=== PATIENT | male | born 1990 | race Caucasian/White ===

== ENCOUNTER 2019-04-17 15:35 | Emergency (ER) | payer OTHER ==
[2019-04-17 15:45] VITALS: BP 147/107
[2019-04-17] MEDS ORDERED: oxyCODONE 5 MG TABLET PO STA (15:56)
[2019-04-17] MEDS ORDERED: predniSONE 20 MG TABLET PO STA (15:56)
--- NOTE | 2019-04-17 16:01 | ED Physician Documentation ---
PD HPI BACK PAIN - Stated complaint Stated Complaint: BACK PX - Chief complaint Chief Complaint: Back Pain - History obtained from History obtained from: Patient - History of Present Illness Timing - onset: Other (29-year-old gentleman with history of sciatica. For the last month he has had low back pain radiating into the left leg down to the small toe side. Has had this before a few years ago and it went away after about 8 weeks. It was getting better, but got worse again a couple weeks ago. He has tried naproxen and a muscle relaxer without help.) Review of Systems Ten Systems: 10 systems reviewed and negative Constitutional: denies: Fever, Chills GI: denies: Abdominal Pain, Nausea, Vomiting : denies: Dysuria, Frequency, Incontinent PD PAST MEDICAL HISTORY - Past Medical History Past Medical History: Yes Respiratory: Asthma - Past Surgical History Past Surgical History: No - Present Medications Home Medications: Ambulatory Orders Medication Instructions Recorded Confirmed Albuterol Sulfate [Albuterol PRN 07/13/15 07/13/15 Sulfate Hfa] Cephalexin [Keflex] 500 mg PO Q6HR 10 Days capsule 07/13/15 Fexofenadine HCl [Tammie Allergy] DAILY 07/13/15 07/13/15 Ranitidine HCl [Zantac 75] 1 tab BID 07/13/15 07/13/15 Oxycodone HCl/Acetaminophen 1 - 2 each PO Q6H PRN #20 tablet 04/17/19 [Percocet 5-325 mg Tablet] Physical Therapy 1 unit TD ONCE #1 04/17/19 predniSONE [Deltasone] 20 mg PO [id number] #21 tab 04/17/19 - Allergies Allergies/Adverse Reactions: Allergies Allergy/AdvReac Type Severity Reaction Status Date / Time No Known Drug Allergies Allergy Verified 07/13/15 10:58 - Social History Does the pt smoke?: No Smoking Status: Never smoker Does the pt drink ETOH?: No Does the pt have substance abuse?: No - Immunizations Immunizations are current?: Yes Immunizations: TDAP current <10years PD ED PE NORMAL - Vitals Vital signs reviewed: Yes - General General: Alert and oriented X 3, Other (Winces with motion) - Abdomen Abdomen: Soft, Non tender - Back Back: No spinal TTP, Other (He has a 1+ Left patellar reflex and a 2+ right patellar reflex. His Achilles reflexes and sensation throughout the legs are symmetric.) - Derm Derm: Normal color, Warm and dry - Extremities Extremities: No edema, No calf tenderness / cord Results - Vitals Vitals: Vital Signs - 24 hr 04/17/19 15:39 Temperature 36.6 C Heart Rate 99 Respiratory 18 Rate Blood Pressure 147/107 H O2 Saturation 100 Oxygen O2 Source Room air PD MEDICAL DECISION MAKING - ED course ED course: 29-year-old gentleman with low back pain, no "red flags". He has findings suggestive of a left L4-L5 radiculopathy. Departure - Departure Disposition: Home, Self Care Clinical Impression: Sciatica Qualifiers: Laterality: left Qualified Code(s): M54.32 - Sciatica, left side Condition: Good Record reviewed to determine appropriate education?: Yes Instructions: ED Sciatica Prescriptions: Oxycodone HCl/Acetaminophen [Percocet 5-325 mg Tablet] 1 - 2 each PO Q6H PRN #20 tablet PRN Reason: pain Physical Therapy 1 unit TD ONCE #1 predniSONE [Deltasone] 20 mg PO [id number] #21 tab Comments: Call your doctor to arrange a follow-up appointment, make the next available appointment. In the interim, return anytime if worse or if new symptoms develop . Do not drink or drive while taking narcotic pain medication. Note that many narcotic pain relievers also contain Tylenol/acetaminophen. Please ensure that your total dose of acetaminophen from all sources does not exceed 3 g (3000 mg) per day. You may get constipated while on this medication. Take a stool softener such as Colace twice a day while you are on it. Also add an [id number] laxative such as senna or MiraLAX on any day that you do not have a bowel movement. If you received a narcotic pain medication or sedative while in the emergency department, do not drive for the next 24 hours. Your blood pressure was elevated today on check into the emergency department. This does not mean that you have hypertension, it is a common phenomenon to come to the emergency department and have elevated blood pressure. I recommend that you see your primary care physician within the week to have it rechecked when you are feeling better.
== END 2019-04-17 16:12 | disposition home or self-care (01) ==
LOC: ED 15:35
DX: M54.32 Sciatica, left side (principal)
CPT/HCPCS: 99283; A9270; J7512

== ENCOUNTER 2019-04-21 15:51 | Emergency (ER) | payer OTHER ==
[2019-04-21 16:09] VITALS: BP 123/87
[2019-04-21] MEDS ORDERED: CHERRY SYRUP 10 ML UDC PO ONE (16:43)
[2019-04-21] MEDS ORDERED: DEXAMETHASONE 10 MG/ML VIAL PO STA (16:43)
[2019-04-21] MEDS ORDERED: KETOROLAC 60 MG/2 ML VIAL IM STA (16:44)
--- NOTE | 2019-04-21 16:46 | ED Physician Documentation ---
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 He does state that he had some improvement with the pain medication he has been having to lay on his abdomen as the only comfortable position he can get into. Review of Systems Constitutional: denies: Fever Nose: denies: Rhinorrhea / runny nose, Congestion Respiratory: denies: Cough GI: denies: Vomiting Musculoskeletal: reports: Back pain. denies: Neck pain, Extremity pain Neurologic: denies: Generalized weakness, Focal weakness, Numbness PD PAST MEDICAL HISTORY - Past Medical History Past Medical History: Yes Respiratory: Asthma - Past Surgical History Past Surgical History: No - Present Medications Home Medications: Ambulatory Orders Medication Instructions Recorded Confirmed Albuterol Sulfate [Albuterol PRN 07/13/15 07/13/15 Sulfate Hfa] Cephalexin [Keflex] 500 mg PO Q6HR 10 Days capsule 07/13/15 Fexofenadine HCl [Tammie Allergy] DAILY 07/13/15 07/13/15 Ranitidine HCl [Zantac 75] 1 tab BID 07/13/15 07/13/15 Oxycodone HCl/Acetaminophen 1 - 2 each PO Q6H PRN #20 tablet 04/17/19 [Percocet 5-325 mg Tablet] Physical Therapy 1 unit TD ONCE #1 04/17/19 predniSONE [Deltasone] 20 mg PO [id number] #21 tab 04/17/19 - Allergies Allergies/Adverse Reactions: Allergies Allergy/AdvReac Type Severity Reaction Status Date / Time No Known Drug Allergies Allergy Verified 04/21/19 16:09 - Social History Does the pt smoke?: No Smoking Status: Never smoker Does the pt drink ETOH?: No Does the pt have substance abuse?: No - Immunizations Immunizations are current?: Yes Immunizations: TDAP current <10years - POLST Patient has POLST: No PD ED PE NORMAL - Vitals Vital signs reviewed: Yes (tachy and hypertensive) - General General: Alert and oriented X 3, No acute distress, Well developed/nourished, Other (The patient is laying prone on the gurney and does not appaer in di stress) - HEENT HEENT: Atraumatic, PERRL, EOMI - Respiratory Respiratory: No respiratory distress - Back Back: No CVA TTP, No spinal TTP, Other (There is mild tenderness to the lower lumbar paraspinous muscles on the left lower extending into the sciatic notch .) - Derm Derm: Normal color, Warm and dry, No rash - Extremities Extremities: No deformity, No edema, Other (good dorsiflexion bilaterally. sub jective numbness to the web space of toes 1 & 2 on left foot. ) - Neuro Neuro: Alert and oriented X 3, board filler 2-12 intact, No motor deficit, Normal speech Eye Opening: Spontaneous Motor: Obeys Commands Verbal: Oriented GCS Score: 15 - Psych Psych: Normal mood, Normal affect Results - Vitals Vitals: Vital Signs - 24 hr 04/21/19 16:05 Temperature 36.2 C L Heart Rate 105 H Respiratory 14 Rate Blood Pressure 123/87 H O2 Saturation 100 Oxygen O2 Source Room air PD MEDICAL DECISION MAKING - ED course Complexity details: considered differential, d/w patient, d/w family ED course: 29-year-old male with history of sciatica is given dexamethasone 10 mg orally I recommended that he avoid using heating pack and use ice ice and stretch as well as excessive hydration and we will provide him with some more pain medication and muscle relaxant. He is referred to the [facility] [place]. Departure - Departure Disposition: 01 Home, Self Care Clinical Impression: Sciatica Qualifiers: Laterality: left Qualified Code(s): M54.32 - Sciatica, left side Condition: Stable Instructions: ED Sciatica Follow-Up: [facility] [Provider Group]
== END 2019-04-21 17:11 | disposition home or self-care (01) ==
LOC: ED 15:51
DX: M54.42 Lumbago with sciatica, left side (principal)
CPT/HCPCS: 96372; 99282; 99283